=== PATIENT | male | born 2000 | race American Indian/Alaskan Native ===

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

== ENCOUNTER 2022-04-07 13:42 | Emergency (ER) | payer OTHER, SELFPAY | END 2022-04-07 14:38 | disposition left against medical advice (07) | PROVIDERS: Emergency Provider Emergency Medicine; PCP Family Medicine | DX: R11.2 Nausea with vomiting, unspecified (principal) ==

== ENCOUNTER 2023-05-15 18:02 | Emergency (ER) | payer OTHER, SELFPAY ==
[2023-05-15 18:11] VITALS: BP 159/96; PULSE 94; RESP 18; TEMP 37; O2SAT 99; BMI 18.8
--- NOTE | 2023-05-15 18:52 | ED.ABDPAIN ---
HPI - Abdominal Pain General Chief Complaint: Abdominal Pain Stated Complaint: abdominal pain, lack of appetite, weak Time Seen by Provider: 05/15/23 18:26 Source: patient Mode of arrival: Ambulatory History of Present Illness HPI narrative: 22-year-old male with no reported past medical history presents by private vehicle from home for several days of decreased appetite and abdominal pain earlier this evening. Patient states that he has been dealing with low mood and this has caused him to have a decreased appetite. Earlier today he decided to eat Prydeinig food which caused an upset stomach and nausea. He reports passive suicidal thoughts without plan. He states that he does not want to hurt himself but does not know what to do or where to go for resources. Related Data Previous Rx's Medication Instructions Recorded acetaminophen 300 mg-codeine 30 mg 1 tab PO Q6H PRN pain #10 tabs 03/19/18 tablet (Tylenol-Codeine #3) Allergies Allergy/AdvReac Type Severity Reaction Status Date / Time Penicillins [PENICILLINS] Allergy Severe Unverified 08/14/17 11:57 Review of Systems Review of Systems Narrative: Negative except as noted above Patient History Medical History Healthy adolescent Surgical History H/O hernia repair Family History Family/Other Lung cancer Family/Other Breast cancer Family/Other Cancer Social History Smoking Status: Current every day smoker Smoking Status: Current every day smoker tobacco type: cigarettes and vaping alcohol intake frequency: a few times a month Substance Use Type: marijuana Exam Initial Vital Signs Initial Vital Signs: Vital Signs Temperature 98.6 F 05/15/23 18:11 Pulse Rate 94 H 05/15/23 18:11 Respiratory Rate 18 05/15/23 18:11 Blood Pressure 159/96 H 05/15/23 18:11 Pulse Oximetry 99 05/15/23 18:11 Oxygen Delivery Method Room Air, [place] Nasal Cannula 05/15/23 18:11 Const: Awake, alert, no acute distress, nontoxic appearing Cardiac: regular rate, regular rhythm RESP: unlabored, clear bilaterally, no wheezing GI: Atraumatic, soft, nontender Skin: Warm, Dry, intact, no rashes Neuro: AO x3, CN II-XII grossly intact, moves all extremities Psych: tearful, depressed mood. Suicidal ideations (passive, no plan), not homicidal Course Course Course Narrative: Abdominal pain after eating Prydeinig food after several days of anorexia. Patient is also tearful stating that he has had passive suicidal thoughts without plan and is here for help because he does not know where else to go. He states he does not want to hurt himself but does not know where else to go and is requesting resources. Abdomen soft and nontender. Symptoms likely started due to eating spicy food after prolonged decreased appetite. Orders Ordered: ED Orders 05/15/23 19:07 Complete Blood Count AUTO DIFF Stat Comprehensive Metabolic Panel Stat Lipase Stat TSH [Thyroid Stimulating Hormone] Stat 05/15/23 20:08 Urine Drug Screen, Rapid Stat Urine Microscopic Stat 05/15/23 20:13 [place] [facility] [place] Super[place] Stat Discontinued Medications Acetaminophen (Acetaminophen 325 Mg Tablet) 975 mg PO NOW ONE Stop: 05/15/23 19:10 Last Admin: 05/15/23 19:12 Dose: 975 mg Documented By: SUSAN Al Hydrox/Mg Hydrox/Simethicone (Mag Hydrox/Alum/Simeth 30 Ml Udc) 30 ml PO NOW ONE Stop: 05/15/23 18:52 Last Admin: 05/15/23 19:01 Dose: 30 ml Documented By: SUSAN Lidocaine HCl (Lidocaine Viscous 2% 15 Ml Solution) 15 ml PO NOW ONE Stop: 05/15/23 18:52 Last Admin: 05/15/23 19:00 Dose: 15 ml Documented By: SUSAN Ondansetron HCl (Ondansetron 4 Mg Odt) 4 mg SL NOW ONE Stop: 05/15/23 19:10 Last Admin: 05/15/23 19:12 Dose: 4 mg Documented By: SUSAN Reevaluation(s) Reevaluation #1: Laboratory work is reviewed, no abnormalities identified, TSH within normal limits. Patient has been given a GI cocktail and is tolerating fluids, states he feels much better. Unfortunately we do not have social work today, however a consult has been placed for social work to contact the patient tomorrow when they are back in the department. Patient was advised that he should follow up with his primary care physician as he will likely need both counseling and antidepressants, however this is best started through her primary care physician to make sure he is adequate follow up. Patient states he feels better and is in agreement with plan. Crisis line info given to patient prior to discharge. Vital Signs Vital signs: Vital Signs - 8 hr 05/15/23 18:11 05/15/23 20:39 Temperature 98.6 F Pulse Rate 94 H 73 Respiratory Rate 18 18 Blood Pressure 159/96 H 139/66 Pulse Oximetry 99 99 Oxygen Delivery Method Room Air [place] Nasal Cannula Room Air MDM - Abdominal Pain Lab Data 05/15/23 19:07 05/15/23 19:07 Labs: Lab Results 05/15/23 05/15/23 Range/Units 19:07 20:08 WBC 6.8 (4.5-11.0) X10^3/uL RBC 4.94 (4.5-5.9) X10^6/uL Hgb 14.9 (13.5-17.5) g/dL Hct 43.4 (41-53) % MCV 87.9 (80-100) fL MCH 30.2 (26-34) PG MCHC 34.3 (30-36) % RDW 12.9 (11.6-14.8) % Plt Count 219 (150-400) X10^3/uL Neut % (Auto) 66.3 (50-75) % Lymph % (Auto) 25.1 (25-40) % [place] % (Auto) 7.6 (3-14) % Eos % (Auto) 0.7 L (2-4) % Baso % (Auto) 0.3 (0-2) % Neut # (Auto) 4500 (5549-9767) /uL Lymph # (Auto) 1700 (2652-9553) /uL [place] # (Auto) 500 (0-900) /uL Eos # (Auto) 0 (0-450) /uL Baso # (Auto) 0 (0-100) /uL Sodium 141 (137-145) mmol/L Potassium 3.9 (3.4-5.1) mmol/L Chloride 102 (98-107) mmol/L Carbon Dioxide 28 (22-32) mmol/L BUN 15 (9-20) mg/dL Creatinine 0.85 (0.66-1.25) mg/dL Estimated GFR > 60 (>60) mL/min BUN/Creatinine Ratio 17.6 (6-22) Glucose 93 (70-100) mg/dL Calcium 10.3 H (8.4-10.2) mg/dL Total Bilirubin 1.1 (0.2-1.3) mg/dL AST 29 (17-59) IU/L ALT 17 (<50) IU/L Alkaline Phosphatase 55 (38-126) U/L Total Protein 8.8 H (6.3-8.2) g/dL Albumin 5.1 H (3.5-5.0) g/dL Globulin 3.7 (1.7-4.1) g/dL Albumin/Globulin Ratio 1.4 (1.0-2.8) Lipase 62 (23-300) U/L TSH 0.570 (0.47-4.68) uIU/mL Urine RBC 0-1/hpf (0-5/HPF) Urine WBC 0-1/hpf (0-5/HPF) Ur Squamous Epith Cells 0-1 /hpf (0-5/HPF) Amorphous Sediment 4+ Urine Bacteria Occasional (0-1) (None) Ur Culture Indicated? Cult not indicated U Opiates 300ng/mL cut Negative (Negative) Ur Oxycodone Screen Negative (Negative) Urine Methadone Screen Negative (Negative) Ur Barbiturates Screen Negative (Negative) U Tricyclic Antidepress Negative (Negative) Ur Phencyclidine Scrn Negative (Negative) Ur Amphetamines Screen Negative (Negative) U Methamphetamines Scrn Negative (Negative) Ur MDMA Scrn (Ecstasy) Negative (Negative) U Benzodiazepines Scrn Negative (Negative) Urine Cocaine Screen Negative (Negative) U Marijuana (THC) Screen Positive H (Negative) Urine pH Normal (Normal) Urine Specific [place] Normal (Normal) Ur Creatinine Normal (Normal) Point of care testing: Urine Dip Bedside Urine Glucose Negative Bedside Urine Bilirubin - Negative Bedside Urine Ketone - Negative Urine Specific [place] 1.015 Bedside Urine Occult Blood - Negative Bedside Urine pH 8 Bedside Urine Protein +/- 15 Bedside Urine Urobilinogen - Negative Bedside Urine Nitrite - Negative Bedside Urine Leukocytes - Negative Esterase Discharge Plan Departure Patient Disposition: Home Clinical Impression: Depression, Abdominal pain Instructions: Depression, Acute Abdominal Pain Activity Restrictions/Additional Instructions: Your laboratory work today was normal including your thyroid panels. I highly recommend following up with your primary care physician, you may need to be started on antidepressants, however this should be started with your primary care physician and not through the emergency department. Our social media marketing analyst has been consulted and we will contact you tomorrow to help set up additional resources. Crisis line: Dial [phone] Prescriptions: No Action acetaminophen-codeine [Tylenol-Codeine #3] 300-30 mg tablet 1 tab PO Q6H PRN (Reason: pain) Qty: 10 0RF Referrals: Joaquina Nava MD [Primary Care Provider] - Stand Alone Forms: Patient Portal/API
[2023-05-15] MEDS: LIDOCAINE VISCOUS 2% 15 ML SOLUTION PO (19:00)
[2023-05-15] MEDS: MAG HYDROX/ALUM/SIMETH 30 ML UDC PO (19:01)
[2023-05-15] MEDS: ONDANSETRON 4 MG ODT SL (19:12)
[2023-05-15] MEDS: ACETAMINOPHEN 325 MG TABLET 975 MG PO (19:12)
[2023-05-15 19:15] LABS: Add Manual Diff / Slide Review NO; Basophils Absolute Auto 0 /uL (0-100); Basophils Percent Auto 0.3 % (0-2); Eosinophils Absolute Auto 0 /uL (0-450); Eosinophils Percent Auto 0.7 % (2-4); Hematocrit 43.4 % (41-53); Hemoglobin 14.9 g/dL (13.5-17.5); Lymphocytes Absolute Auto 1700 /uL (1100-4500); Lymphocytes Percent Auto 25.1 % (25-40); Mean Corpuscular HGB Conc 34.3 % (30-36); Mean Corpuscular Hemoglobin 30.2 PG (26-34); Mean Corpuscular Volume 87.9 fL (80-100); Monocytes Absolute Auto 500 /uL (0-900); Monocytes Percent Auto 7.6 % (3-14); Neutrophils Absolute Auto 4500 /uL (1500-7000); Neutrophils Percent Auto 66.3 % (50-75); Platelet Count 219 X10^3/uL (150-400); Red Blood Cell Count 4.94 X10^6/uL (4.5-5.9); Red Cell Distribution Width 12.9 % (11.6-14.8); White Blood Cell Count 6.8 X10^3/uL (4.5-11.0)
[2023-05-15 19:36] LABS: Alanine Aminotransferase 17 IU/L (<50); Albumin 5.1 g/dL (3.5-5.0); Albumin Globulin Ratio 1.4 (1.0-2.8); Alkaline Phosphatase 55 U/L (38-126); Aspartate Aminotransferase 29 IU/L (17-59); BUN Creatinine Ratio 17.6 (6-22); Bilirubin Total 1.1 mg/dL (0.2-1.3); Blood Urea Nitrogen 15 mg/dL (9-20); Calcium 10.3 mg/dL (8.4-10.2); Carbon Dioxide 28 mmol/L (22-32); Chloride 102 mmol/L (98-107); Estimated Glomerular Filt Rate > 60 mL/min (>60); Globulin 3.7 g/dL (1.7-4.1); Glucose 93 mg/dL (70-100); HEMOLYSIS < 15 (0-50); Lipase 62 U/L (23-300); Potassium 3.9 mmol/L (3.4-5.1); Sodium 141 mmol/L (137-145); Total Protein 8.8 g/dL (6.3-8.2)
[2023-05-15 20:23] LABS: UR Morphine/Opiate cutoff 300 Negative (Negative); Ur Creatinine Normal (Normal); Ur Specific Gravity Normal (Normal); Urine Amphetamines Negative (Negative); Urine Barbiturates Negative (Negative); Urine Benzodiazepines Negative (Negative); Urine Cocaine Negative (Negative); Urine MDMA Negative (Negative); Urine Methadone Negative (Negative); Urine Methamphetamines Negative (Negative); Urine Oxycodone Negative (Negative); Urine Phencyclidine Negative (Negative); Urine Tetrahydrocannabinol Positive (Negative); Urine Tricyclic Antidepressant Negative (Negative); Urine pH Normal (Normal)
[2023-05-15 20:32] LABS: Amorphous Sediment Urine 4+; Bacteria Urine Occasional (0-1); Culture Indicated Urine Cult Not Indicated; RBC Urine 0-1/HPF (0-5/HPF); Squamous Epithelial Cell Urine 0-1 /HPF (0-5/HPF); WBC Urine 0-1/HPF (0-5/HPF)
[2023-05-15 20:39] VITALS: BP 139/66; PULSE 73; RESP 18; O2SAT 99
--- NOTE | 2023-05-16 16:53 | CM.SWNOTE ---
ED CUT AND PRINT MACHINE OPERATOR Follow Up Note CUT AND PRINT MACHINE OPERATOR receives consult for f/u call after patient's presentation to ED due to concern for abd pain and reported Depression and passive SI. CUT AND PRINT MACHINE OPERATOR calls patient and patient reports he has been depressed for a long time and is interested in medication. Patient endorses his family has not been supportive of rx so he has not ever taken anything. Patient endorses he is ready for some help. CUT AND PRINT MACHINE OPERATOR offers to assist patient in setting up PCP appt. CUT AND PRINT MACHINE OPERATOR recommends discussing BH referrals with PCP at [facility]. CUT AND PRINT MACHINE OPERATOR calls patient's PCP office at [facility] and schedules PCP f/u for tomorrow 05/17/23 at 11:00 AM, the clinic requests records from patient's recent ED visit. CUT AND PRINT MACHINE OPERATOR calls patient back and informs him of PCP appt, patient indicates agreement and understanding. Patient gives consent for CUT AND PRINT MACHINE OPERATOR to fax ED records to PCP office. Plan: patient to f/u with PCP tomorrow for rx and BH referral. ADONAY VazquezSW
== END 2023-05-15 20:52 | disposition home or self-care (01) ==
PROVIDERS: Emergency Provider Emergency Medicine; PCP Family Medicine
DX: F32.A Depression, unspecified (principal); R10.9 Unspecified abdominal pain
CPT/HCPCS: 36415; 80053; 80305; 81003; 81015; 83690; 84443; 85025; 99283; 99284

== ENCOUNTER 2023-11-04 19:50 | Emergency (ER) | payer OTHER, SELFPAY ==
[2023-11-04 19:58] VITALS: BP 118/62; PULSE 101; RESP 22; TEMP 38.8; O2SAT 98; BMI 20.7
[2023-11-04] MEDS: ONDANSETRON 4 MG/2 ML INJ IV (20:30)
[2023-11-04] MEDS: SODIUM CHLORIDE 0.9% 1,000 ML 1000 ML IV (20:31)
[2023-11-04] MEDS: KETOROLAC 30 MG/ML VIAL 15 MG IV (20:31)
[2023-11-04 20:33] LABS: Add Manual Diff / Slide Review NO; Basophils Absolute Auto 0 /uL (0-100); Basophils Percent Auto 0.2 % (0-2); Eosinophils Absolute Auto 100 /uL (0-450); Eosinophils Percent Auto 0.4 % (2-4); Hematocrit 41.1 % (41-53); Hemoglobin 13.8 g/dL (13.5-17.5); Lymphocytes Absolute Auto 800 /uL (1100-4500); Mean Corpuscular HGB Conc 33.5 % (30-36); Mean Corpuscular Hemoglobin 30.6 PG (26-34); Mean Corpuscular Volume 91.4 fL (80-100); Monocytes Absolute Auto 900 /uL (0-900); Monocytes Percent Auto 6.2 % (3-14); Neutrophils Absolute Auto 13400 /uL (1500-7000); Neutrophils Percent Auto 88.2 % (50-75); Platelet Count 189 X10^3/uL (150-400); Red Blood Cell Count 4.49 X10^6/uL (4.5-5.9); White Blood Cell Count 15.2 X10^3/uL (4.5-11.0)
[2023-11-04 20:49] LABS: Lactate (Lactic Acid) 1.3 mmol/L (0.7-2.1)
[2023-11-04 20:50] LABS: Alanine Aminotransferase 15 IU/L (<50); Albumin 4.7 g/dL (3.5-5.0); Albumin Globulin Ratio 1.4 (1.0-2.8); Alkaline Phosphatase 71 U/L (38-126); Aspartate Aminotransferase 26 IU/L (17-59); BUN Creatinine Ratio 17.8 (6-22); Blood Urea Nitrogen 21 mg/dL (9-20); Calcium 9.2 mg/dL (8.4-10.2); Carbon Dioxide 27 mmol/L (22-32); Chloride 100 mmol/L (98-107); Estimated Glomerular Filt Rate > 60 mL/min (>60); Globulin 3.4 g/dL (1.7-4.1); Glucose 167 mg/dL (70-100); HEMOLYSIS < 15 (0-50); Lipase 41 U/L (23-300); Potassium 3.8 mmol/L (3.4-5.1); Sodium 134 mmol/L (137-145); Total Protein 8.1 g/dL (6.3-8.2)
[2023-11-04 21:07] LABS: Procalcitonin 0.229 ng/mL (<0.5)
[2023-11-04 21:32] LABS: Influenza A - CEPHEID Flu A NEGATIVE (NEGATIVE); Influenza B - CEPHEID Flu B NEGATIVE (NEGATIVE); Respiratory Syncytial Virus Negative (Negative)
[2023-11-04 21:49] LABS: COVID-19 CEPHEID 4-PLEX PCR Negative (Negative)
--- NOTE | 2023-11-04 22:19 | ED.NAVMDI ---
HPI - Nausea/Vomiting/Diarrhea General Chief complaint: Nausea/Vomiting/Diarrhea Stated complaint: abd px, vomiting unable to eat or drink Time Seen by Provider: 11/04/23 20:06 Mode of arrival: Ambulatory History of Present Illness HPI Narrative: Patient is a 23-year-old male without significant past medical history presenting today with nausea vomiting diarrhea ongoing for last 2-3 days. He reports he has been out cramping on about for the last couple of days nobody else is sick. He has not had any recent antibiotics no travel. He reports that the 1st day he had significant vomiting that has subsided. Now he has had a couple episodes of diarrhea today nonbloody. Minimal abdominal pain. He has had sweats and chills. Currently febrile temperature 101.8? tachycardic at 101. Related Data Previous Rx's Medication Instructions Recorded acetaminophen 300 mg-codeine 30 mg 1 tab PO Q6H PRN pain #10 tabs 03/19/18 tablet (Tylenol-Codeine #3) ondansetron 4 mg disintegrating 4 mg PO Q6-8H PRN nausea and 11/04/23 tablet vomiting #10 tabs Allergies Allergy/AdvReac Type Severity Reaction Status Date / Time Penicillins [PENICILLINS] Allergy Severe Unverified 08/14/17 11:57 Patient History Medical History Healthy adolescent Surgical History H/O hernia repair Family History Family/Other Lung cancer Family/Other Breast cancer Family/Other Cancer Social History Smoking Status: Current every day smoker Smoking Status: Current every day smoker tobacco type: cigarettes and vaping alcohol intake frequency: a few times a month Substance Use Type: marijuana Exam Initial Vital Signs Initial Vital Signs: Vital Signs Temperature 101.8 F H 11/04/23 19:58 Pulse Rate 101 H 11/04/23 19:58 Respiratory Rate 22 11/04/23 19:58 Blood Pressure 118/62 11/04/23 19:58 Pulse Oximetry 98 11/04/23 19:58 Oxygen Delivery Method Room Air 11/04/23 19:58 GENERAL: Alert well-appearing 23-year-old male and in no acute distress. HEENT: Head atraumatic,EOMI, pupils reactive, face symmetric, moist mucous membranes CARDIOVASCULAR: Regular rate and rhythm without murmurs, rubs or gallops. RESPIRATORY: Breath sounds equal bilaterally, no wheezes rales or rhonchi. ABDOMEN: Soft, nontender. Normoactive bowel sounds all 4 quadrants. No guarding or rebound. EXTREMITIES: Normal range of motion, no clubbing or edema. Neurovascularly intact NEUROLOGICAL: Alert and oriented x4.Normal gait and speech. SKIN: Warm, dry, no laceration, no petechiae, no rashes or lesions. Course Orders Ordered: ED Orders 11/04/23 21:14 Blood Culture Stat Discontinued Medications Sodium Chloride (Normal Saline 0.9%) 1,000 mls @ 1,000 mls/hr IV BOLUS ONE Stop: 11/04/23 21:21 Last Infusion: 11/04/23 21:13 Dose: Infused Documented By: Admin: 11/04/23 20:31 Dose: 1,000 mls/hr Documented By: Ketorolac Tromethamine (Ketorolac 30 Mg/Ml Vial) 15 mg IV NOW ONE Stop: 11/04/23 20:23 Last Admin: 11/04/23 20:31 Dose: 15 mg Documented By: Ondansetron HCl (Ondansetron 4 Mg/2 Ml Inj) 4 mg IV NOW ONE Stop: 11/04/23 20:24 Last Admin: 11/04/23 20:30 Dose: 4 mg Documented By: Ondansetron HCl (Ondansetron 4 Mg Odt Prepack) 1 bottle MISC NOW ONE Stop: 11/04/23 22:28 Last Admin: 11/04/23 22:40 Dose: 1 bottle Documented By: RL Vital Signs Vital signs: Vital Signs - 8 hr 11/04/23 22:32 Temperature 99.0 F Pulse Rate 63 Respiratory Rate 18 Blood Pressure 96/52 L Pulse Oximetry 97 Oxygen Delivery Method Room Air MDM - Nausea/Vomiting/Diarrhea Lab Data 11/04/23 20:17 11/04/23 20:17 Labs: Lab Results 11/04/23 11/04/23 Range/Units 20:17 20:28 WBC 15.2 H (4.5-11.0) X10^3/uL RBC 4.49 L (4.5-5.9) X10^6/uL Hgb 13.8 (13.5-17.5) g/dL Hct 41.1 (41-53) % MCV 91.4 (80-100) fL MCH 30.6 (26-34) PG MCHC 33.5 (30-36) % RDW 13.0 (11.6-14.8) % Plt Count 189 (150-400) X10^3/uL Neut % (Auto) 88.2 H (50-75) % Lymph % (Auto) 5.0 L (25-40) % [place] % (Auto) 6.2 (3-14) % Eos % (Auto) 0.4 L (2-4) % Baso % (Auto) 0.2 (0-2) % Neut # (Auto) 70220 H (6755-9059) /uL Lymph # (Auto) 800 L (4750-8000) /uL [place] # (Auto) 900 (0-900) /uL Eos # (Auto) 100 (0-450) /uL Baso # (Auto) 0 (0-100) /uL Sodium 134 L (137-145) mmol/L Potassium 3.8 (3.4-5.1) mmol/L Chloride 100 (98-107) mmol/L Carbon Dioxide 27 (22-32) mmol/L BUN 21 H (9-20) mg/dL Creatinine 1.18 (0.66-1.25) mg/dL Estimated GFR > 60 (>60) mL/min BUN/Creatinine Ratio 17.8 (6-22) Glucose 167 H (70-100) mg/dL Lactate 1.3 (0.7-2.1) mmol/L Calcium 9.2 (8.4-10.2) mg/dL Total Bilirubin 3.0 H (0.2-1.3) mg/dL AST 26 (17-59) IU/L ALT 15 (<50) IU/L Alkaline Phosphatase 71 (38-126) U/L Total Protein 8.1 (6.3-8.2) g/dL Albumin 4.7 (3.5-5.0) g/dL Globulin 3.4 (1.7-4.1) g/dL Albumin/Globulin Ratio 1.4 (1.0-2.8) Lipase 41 (23-300) U/L Procalcitonin 0.229 (<0.5) ng/mL SARS-CoV-2 (PCR) Negative (Negative) Influenza A (RT-PCR) Flu a negative (NEGATIVE) Influenza B (RT-PCR) Flu b negative (NEGATIVE) RSV (PCR) Negative (Negative) MDM Narrative Medical decision making narrative: Patient 23-year-old healthy male who presents today with nausea vomiting diarrhea ongoing for the last 3 days. He is currently febrile at 1:01 a.m.. He was only vomiting the 1st day but still feeling mildly nauseous. He is given IV fluids and Toradol. He is found have leukocytosis of 15, with lactate of 1.3 bilirubin 3.0 AST 26 ALT 15 alk phos 71 lipase 41 Patient is having symptoms of gastroenteritis with diarrhea nausea and vomiting. Abdomen is soft nontender no right upper quadrant pain. He is now tolerating oral fluids after Toradol and Zofran. I suspect gastroenteritis. Discussed with him oral rehydration technique. And when to return to the ED. Upon review his bilirubin has been as high as 2.6 before as well. Discharge Plan Departure Patient Disposition: Home Clinical Impression: Gastroenteritis Instructions: DI for Viral Gastroenteritis -- Adult Activity Restrictions/Additional Instructions: *You have been diagnosed with gastroenteritis *What to do: At this time increase fluid intake as tolerated recommend Pedialyte Gatorade or Gatorade like product. May increase diet as tolerated *Continue to take medications as directed Zofran 4 mg every 6-8 hours if needed for nausea or vomiting Tylenol 1000 mg every 6 hours for [id number] pain or fever Motrin 600 mg every 6 hours if needed for [id number] pain or fever *Follow up with your primary care provider in 2-3 days or call [phone] *Return to ER if you should have increasing pain persistent vomiting worsening diarrhea bloody diarrhea or any new, worsening or concerning symptoms Prescriptions: New ondansetron 4 mg tablet,disintegrating 4 mg PO Q6-8H PRN (Reason: nausea and vomiting) Qty: 10 0RF No Action acetaminophen-codeine [Tylenol-Codeine #3] 300-30 mg tablet 1 tab PO Q6H PRN (Reason: pain) Qty: 10 0RF Referrals: Joaquina Nava MD [Primary Care Provider] - Stand Alone Forms: Patient Portal/API
[2023-11-04 22:32] VITALS: BP 96/52; PULSE 63; RESP 18; TEMP 37.2; O2SAT 97
[2023-11-04] MEDS: ONDANSETRON 4 MG ODT PREPACK 1 BOTTLE MISC (22:40)
== END 2023-11-04 22:43 | disposition home or self-care (01) ==
PROVIDERS: Emergency Provider Emergency Medicine; PCP Family Medicine
DX: K52.9 Noninfective gastroenteritis and colitis, unspecified (principal); R00.0 Tachycardia, unspecified; R79.89 Other specified abnormal findings of blood chemistry; Z11.52 Encounter for screening for COVID-19
CPT/HCPCS: 0241U; 36415; 80053; 83605; 83690; 84145; 85025; 87040; 96361; 96374; 96375; 99283; 99284; J1885; J2405

== ENCOUNTER 2024-07-29 11:39 | Emergency (ER) | payer OTHER, SELFPAY ==
[2024-07-29 12:00] VITALS: BP 120/63; PULSE 70; RESP 15; TEMP 37; O2SAT 98; BMI 20.5
[2024-07-29 12:19] VITALS: RESP 15
--- NOTE | 2024-07-29 12:32 | ED_ITS ---
HPI - Abdominal Pain <Winsome Ferguson PA-C - Last Filed: 07/29/24 16:26> General Chief Complaint: Abdominal Pain Stated Complaint: Gallbladder issues Time Seen by Provider: 07/29/24 12:12 Source: patient Mode of arrival: Ambulatory History of Present Illness HPI narrative: Mr. Tovar is a pleasant 24-year-old male with no reported past medical history who presents to the emergency department for nausea, vomiting, diarrhea and red for quadrant abdominal pain that he woke up with this morning. Patient states last night he ate mac and cheese that has been sitting in his car for a while. This morning when he woke up he had an episode of postprandial nausea and vomiting, 1 episode of loose stool. Any time he tries to eat or drink he has additional nausea/vomiting. He went to a clinic and had a negative flu test but was advised to come to the emergency department for right upper quadrant tenderness and concern for gallbladder problems. This time patient states he has no pain at rest but he does have mild tenderness to palpation of the right upper quadrant was abdomen. He is feeling slightly nauseated but has not had episode of emesis in the last 2 hours. He denies fevers, chest pain, shortness of breath, cough, flu-like symptoms, sick contact. Related Data Previous Rx's Medication Instructions Recorded acetaminophen 300 mg-codeine 30 mg 1 tab PO Q6H PRN pain #10 tabs 03/19/ tablet (Tylenol-Codeine #3) ondansetron 4 mg disintegrating 4 mg PO Q6-8H PRN nausea and 11/04/23 tablet vomiting #10 tabs ondansetron 4 mg disintegrating 4 mg PO Q8H PRN nausea and 07/29/24 tablet vomiting #14 tabs Allergies Allergy/AdvReac Type Severity Reaction Status Date / Time Penicillins [PENICILLINS] Allergy Severe Rash Verified 07/29/24 13:09 Review of Systems <Winsome Ferguson PA-C - Last Filed: 07/29/24 16:26> Review of Systems ROS Unobtainable: All systems reviewed & are unremarkable except as noted in HPI and below Patient History <Winsome Ferguson PA-C - Last Filed: 07/29/24 16:26> Medical History Healthy adolescent Surgical History H/O hernia repair Family History Family/Other Lung cancer Family/Other Breast cancer Family/Other Cancer Social History Smoking Status: Current every day smoker Smoking Status: Current every day smoker tobacco type: vaping alcohol intake frequency: a few times a month Exam <Winsome Ferguson PA-C - Last Filed: 07/29/24 16:26> Narrative Exam Narrative: GENERAL: 24 year old patient appears stated age. Well-developed patient, in no acute distress. HEAD: Atraumatic. Normocephalic. EYES: No scleral icterus. No injection or drainage. NECK: Trachea midline. Cervical ROM intact. CARDIOVASCULAR: Regular rate and rhythm. RESPIRATORY: ?Nonlabored respirations. ?Speaking in clear, full sentences. ?Clear to auscultation. Breath sounds equal bilaterally. No wheezes, rales, or rhonchi. ? GASTROINTESTINAL: Abdomen soft, nondistended, normal bowel sounds. He has mild reproducible right upper quadrant tenderness but negative Elliott's sign. EXTREMITIES: No edema or joint tenderness. BACK: Nontender without deformity or crepitance. No flank tenderness. NEURO: AOx3. ?Clear speech. ?Moves all 4 extremities appropriately. SKIN: No rash or erythema of visible areas Initial Vital Signs Initial Vital Signs: Vital Signs Temperature 98.6 F 07/29/24 12:00 Pulse Rate 70 07/29/24 12:00 Respiratory Rate 15 07/29/24 12:00 Blood Pressure 120/63 07/29/24 12:00 Pulse Oximetry 98 07/29/24 12:00 Oxygen Delivery Method Room Air 07/29/24 12:00 <Briseyda Lyn MD - Last Filed: 08/01/24 04:09> Initial Vital Signs Initial Vital Signs: Vital Signs Temperature 98.6 F 07/29/24 12:00 Pulse Rate 70 07/29/24 12:00 Respiratory Rate 15 07/29/24 12:00 Blood Pressure 120/63 07/29/24 12:00 Pulse Oximetry 98 07/29/24 12:00 Oxygen Delivery Method Room Air 07/29/24 12:00 Course <Winsome Ferguson PA-C - Last Filed: 07/29/24 16:26> Orders Ordered: Discontinued Medications Ondansetron HCl (Ondansetron 4 Mg Odt) 4 mg SL NOW ONE Stop: 07/29/24 12:40 Last Admin: 07/29/24 13:06 Dose: 4 mg Documented By: PHYLLIS Vital Signs Vital signs: Vital Signs - 8 hr 07/29/24 12:00 07/29/24 12:19 07/29/24 13:11 Temperature 98.6 F Pulse Rate 70 Respiratory Rate 15 15 14 Blood Pressure 120/63 Pulse Oximetry 98 Oxygen Delivery Method Room Air 07/29/24 14:53 Temperature 98 F Pulse Rate 60 Respiratory Rate 16 Blood Pressure 141/73 H Pulse Oximetry 99 Oxygen Delivery Method Room Air <Briseyda Lyn MD - Last Filed: 08/01/24 04:09> Orders Ordered: Discontinued Medications Ondansetron HCl (Ondansetron 4 Mg Odt) 4 mg SL NOW ONE Stop: 07/29/24 12:40 Last Admin: 07/29/24 13:06 Dose: 4 mg Documented By: PHYLLIS Vital Signs Vital signs: Vital Signs - 8 hr 07/29/24 12:00 07/29/24 12:19 07/29/24 13:11 Temperature 98.6 F Pulse Rate 70 Respiratory Rate 15 15 14 Blood Pressure 120/63 Pulse Oximetry 98 Oxygen Delivery Method Room Air 07/29/24 14:53 Temperature 98 F Pulse Rate 60 Respiratory Rate 16 Blood Pressure 141/73 H Pulse Oximetry 99 Oxygen Delivery Method Room Air MDM - Abdominal Pain <Winsome Ferguson PA-C - Last Filed: 07/29/24 16:26> Medical Records Attestation: I reviewed the patient's medical records. Lab Data Point of care testing: Urine Dip Bedside Urine Glucose Negative Bedside Urine Bilirubin - Negative Bedside Urine Ketone - Negative Urine Specific [place] 1.010 Bedside Urine Occult Blood - Negative Bedside Urine pH 8.5 Bedside Urine Protein - Negative Bedside Urine Urobilinogen - Negative Bedside Urine Nitrite - Negative Bedside Urine Leukocytes - Negative Esterase Imaging Data RUQ US: Radiologist's Impression: PROCEDURE: US ABDOMEN LIMITED INDICATIONS: RUQ abd pain; N/V TECHNIQUE: Real-time scanning was performed of the abdominal and retroperitoneal organs, with image documentation. COMPARISON: [facility], US, US ABDOMEN LIMITED, 09/03/2021, 22:39. FINDINGS: Liver: Liver is normal in size and homogeneous in echotexture. Gallbladder: No gallstones. No wall thickening. No pericholecystic edema. Negative sonographic Elliott's sign. Biliary ducts: Intrahepatic bile ducts are non-dilated. Extrahepatic bile duct caliber measures 1.4 mm. Normal is 6-7 mm or less in diameter, or 10 mm or less post-cholecystectomy. Pancreas: Visualized portions of the pancreas are sonographically normal. Miscellaneous: No free abdominal fluid. IVC is dilated, likely due to volume status. Punctate cortical foci within the right renal cortex, nonspecific. IMPRESSION: No acute abnormality. Dilated IVC, likely due to volume status. MDM Narrative Medical decision making narrative: 24-year-old male with no reported past medical history who presents to the emergency department for nausea, vomiting, diarrhea and red for quadrant abdominal pain that he woke up with this morning. Differential diagnosis includes was not limited to gastroenteritis, viral syndrome, cholelithiasis, biliary colic, gastritis, etc. On exam patient is in no acute distress, nontoxic appearing, vital signs within normal limits. He is mild tenderness to palpation of the right upper quadrant but negative Elliott's sign. He believes his symptoms are likely related eating old mac and cheese. He had a negative flu swab prior to arrival. Recommended labs, fluids, Zofran, ultrasound however he declines IV at this time. We will proceed with the ultrasound and oral Zofran. Patient tolerating p.o. after Zofran, no nausea vomiting or diarrhea in the emergency department. Abdominal ultrasound reveals no acute abnormality. He does have a dilated IVC, likely due to volume status. Patient is not experiencing any shortness of breath, any lower extremity edema. Discussed findings of normal gallbladder with no gallstones, patient was very reassured and is requesting discharge. I did provide him with a copy of his imaging and we discussed incidental findings. Discussed strict ED return precautions with the patient. He was prescribed a course of Zofran for suspected gastroenteritis at this time however discussed the importance of follow up with PCP and return to ED for any new or worsening symptoms. Patient verbalized understanding of all information is agreeable to plan. He is stable for discharge home. <Briseyda Lny MD - Last Filed: 08/01/24 04:09> Lab Data Point of care testing: Urine Dip Bedside Urine Glucose Negative Bedside Urine Bilirubin - Negative Bedside Urine Ketone - Negative Urine Specific [place] 1.010 Bedside Urine Occult Blood - Negative Bedside Urine pH 8.5 Bedside Urine Protein - Negative Bedside Urine Urobilinogen - Negative Bedside Urine Nitrite - Negative Bedside Urine Leukocytes - Negative Esterase Discharge Plan Departure Patient Disposition: Home Clinical Impression: Gastroenteritis Instructions: DI for Viral Gastroenteritis -- Adult Activity Restrictions/Additional Instructions: Thank you for coming to the emergency department. Today you were evaluated for right upper quadrant abdominal pain, nausea, vomiting diarrhea. The ultrasound of your abdomen revealed no gallstones or problems with the gallbladder. Please rest, hydrate using water electrolyte drinks, and uses prescribed nausea medicine if needed. Please follow up with the primary care doctor but return to the emergency department if you develop severe pain, persistent vomiting and diarrhea or any other concerns. Please follow up with your primary care doctor within the next 2-3 days for ER follow-up. (If you do not have a PCP you can call [phone]. ?to schedule an appointment with an [facility] Primary Care Provider) IF YOU DEVELOP ANY NEW OR WORSENING SYMPTOMS, RETURN TO THE ER! Please read the attached instructions, they highlight more specific treatments and interventions for you at home. Thank you for letting me participate in your care, Winsome Ferguson PA-C Prescriptions: New ondansetron 4 mg tablet,disintegrating 4 mg PO Q8H PRN (Reason: nausea and vomiting) Qty: 14 0RF No Action acetaminophen-codeine [Tylenol-Codeine #3] 300-30 mg tablet 1 tab PO Q6H PRN (Reason: pain) Qty: 10 0RF ondansetron 4 mg tablet,disintegrating 4 mg PO Q6-8H PRN (Reason: nausea and vomiting) Qty: 10 0RF Referrals: Joaquina Nava MD [Primary Care Provider] - Stand Alone Forms: Patient Portal/API/Survey ED Sign-out <Briseyda Lyn MD - Last Filed: 08/01/24 04:09> Cosign ED Attending Inderjit Attestation: I was immediately available in the department for consultation throughout this patient's visit. Briseyda Lyn MD
--- NOTE | 2024-07-29 12:39 | DI.US.S_ITS ---
PROCEDURE: US ABDOMEN LIMITED INDICATIONS: RUQ abd pain; N/V TECHNIQUE: Real-time scanning was performed of the abdominal and retroperitoneal organs, with image documentation. COMPARISON: [facility], , US ABDOMEN LIMITED, 09/03/2021, 22:39. FINDINGS: Liver: Liver is normal in size and homogeneous in echotexture. Gallbladder: No gallstones. No wall thickening. No pericholecystic edema. Negative sonographic Elliott's sign. Biliary ducts: Intrahepatic bile ducts are non-dilated. Extrahepatic bile duct caliber measures 1.4 mm. Normal is 6-7 mm or less in diameter, or 10 mm or less post-cholecystectomy. Pancreas: Visualized portions of the pancreas are sonographically normal. Miscellaneous: No free abdominal fluid. IVC is dilated, likely due to volume status. Punctate cortical foci within the right renal cortex, nonspecific. IMPRESSION: No acute abnormality. Dilated IVC, likely due to volume status. Dictated by: Davy Garzon M.D. on 07/29/2024 at 13:25 Approved by: Davy Garzon M.D. on 07/29/2024 at 13:27
[2024-07-29] MEDS: ONDANSETRON 4 MG ODT SL (13:06)
[2024-07-29 13:11] VITALS: RESP 14
[2024-07-29 14:53] VITALS: BP 141/73; PULSE 60; RESP 16; TEMP 36.6; O2SAT 99
== END 2024-07-29 14:54 | disposition home or self-care (01) ==
PROVIDERS: Emergency Provider Physician Assistant; PCP Family Medicine
DX: K52.9 Noninfective gastroenteritis and colitis, unspecified (principal); R11.2 Nausea with vomiting, unspecified; R10.11 Right upper quadrant pain
CPT/HCPCS: 76705; 81003; 99283

== ENCOUNTER 2025-01-29 15:21 | Emergency (ER) | payer OTHER, SELFPAY ==
[2025-01-29 15:55] VITALS: BP 133/85; PULSE 78; RESP 16; TEMP 37; O2SAT 97
[2025-01-29] MEDS: KETOROLAC 30 MG/ML VIAL 15 MG IV (16:22)
[2025-01-29 16:23] LABS: Add Manual Diff / Slide Review NO; Hematocrit 42.8 % (41-53); Hemoglobin 14.8 g/dL (13.5-17.5); Lymphocytes Absolute Auto 1500 /uL (1100-4500); Mean Corpuscular HGB Conc 34.7 % (30-36); Mean Corpuscular Hemoglobin 30.7 PG (26-34); Mean Corpuscular Volume 88.5 fL (80-100); Platelet Count 203 X10^3/uL (150-400)
[2025-01-29] MEDS: diphenhydrAMINE 50 MG/ML VIAL 25 MG IV (16:25)
[2025-01-29 16:31] VITALS: BP 128/77; PULSE 80
[2025-01-29] MEDS: PROCHLORPERAZINE 10 MG/2 ML VIAL IV (16:31)
[2025-01-29 16:36] LABS: Alanine Aminotransferase 22 IU/L (<50); Albumin 5.3 g/dL (3.5-5.0); Albumin Globulin Ratio 1.6 (1.0-2.8); Alkaline Phosphatase 55 U/L (38-126); Blood Urea Nitrogen 15 mg/dL (9-20); Calcium 10.2 mg/dL (8.4-10.2); Carbon Dioxide 26 mmol/L (22-32); Chloride 102 mmol/L (98-107); Estimated Glomerular Filt Rate > 60 mL/min (>60); Globulin 3.3 g/dL (1.7-4.1); Glucose 98 mg/dL (70-99); HEMOLYSIS < 15 (0-50); Potassium 3.6 mmol/L (3.4-5.1); Sodium 140 mmol/L (137-145); Total Protein 8.6 g/dL (6.3-8.2)
[2025-01-29] MEDS: SODIUM CHLORIDE 0.9% 1,000 ML 1000 ML IV (16:36)
[2025-01-29 16:58] LABS: Influenza A - CEPHEID Flu A NEGATIVE (NEGATIVE); Influenza B - CEPHEID Flu B NEGATIVE (NEGATIVE)
[2025-01-29 17:18] LABS: COVID-19 CEPHEID 4-PLEX PCR Negative (Negative)
--- NOTE | 2025-01-29 18:44 | ED_ITS ---
HPI - General Adult General Chief complaint: Upper Respiratory Symptoms Stated complaint: Potential meningitis Time Seen by Provider: 01/29/25 15:50 History of Present Illness HPI narrative: 24-year-old young man who has had 2 severe headaches in the last 2 weeks comes in today with concerns for meningitis after being seen by practitioner of the travel clinic. Apparently he has been fatigued describes having a stiff neck however has no nuchal rigidity, 5:00 p.m. yesterday the fatigue started he began feeling ?like he was developing a virus? by 7:00 p.m. he had a severe left-sided head pain with photophobia and phonophobia. He ended up taking oxycodone at 1:00 a.m. which did seem to help. Was tested for COVID at the clinic and instructed to come to the ER for further evaluation. In further questioning his grandmother has migraines but there is not a very strong family history. He notes that over the past couple of weeks he has been working 18 hour days and has been quite fatigued from this. No vomiting but he is somewhat nauseated Related Data Previous Rx's ?Medication ?Instructions ?Recorded acetaminophen 300 mg-codeine 30 mg 1 tab PO Q6H PRN pa in #10 tabs 03/19/18 tablet (Tylenol-Codeine #3) ondansetron 4 mg disintegrating 4 mg PO Q6-8H PRN naus ea and 11/04/23 tablet vomiting #10 tabs ondansetron 4 mg disintegrating 4 mg PO Q8H PRN nausea and 07/29/24 tablet vomiting #14 tabs Allergies Allergy/AdvReac Type Severity Reaction Status Date / Time Penicillins (PENICILLINS) Allergy Severe Rash Verified 07/29/24 13:09 Review of Systems Review of Systems Narrative: Pertinent positive and negative findings as per HPI Patient History Medical History Healthy adolescent Surgical History H/O hernia repair Family History Family/Other Lung cancer Family/Other Breast cancer Family/Other Cancer tobacco type: vaping alcohol intake frequency: a few times a month Exam Initial Vital Signs Initial Vital Signs: Vital Signs Temperature 98.6 F 01/29/25 15:55 Pulse Rate 78 01/29/25 15:55 Respiratory Rate 16 01/29/25 15:55 Blood Pressure 133/85 01/29/25 15:55 Pulse Oximetry 97 01/29/25 15:55 Oxygen Delivery Method Room Air 01/29/25 15:55 General: Wearing dark sunglasses, significantly photophobic alert, appropriate able to cooperate fully with exam HEENT: Moist mucous membranes, normal sclera with reactive pupils, Neck: No nuchal rigidity, neck pain is not exacerbated with any type of neck flexion Respiratory: Lungs are clear to auscultation, no wheezing no rales no rhonchi. Full and symmetrical air movement Cardiac: Regular rate and rhythm no murmurs no bruits Skin: Warm and dry, no rashes Neurologic: Grossly neurologically intact with no obvious asymmetries or abnormalities Extremities: No trauma, well perfused Psych: Cooperative, appropriate insight and affect Course Orders Ordered: ED Orders 01/29/25 16:14 Complete Blood Count AUTO DIFF Stat Comprehensive Metabolic Panel Stat Covid-19 + FLU A/B + RSV - PCR Stat Discontinued Medications Dexamethasone (Dexamethasone 10 Mg/Ml Vial) 10 mg IV NOW ONE Stop: 01/29/25 16:03 Last Admin: 01/29/25 16:28 Dose: 10 mg Documented By: INA Diphenhydramine HCl (Diphenhydramine 50 Mg/Ml Vial) 25 mg IV NOW ONE Stop: 01/29/25 16:03 Last Admin: 01/29/25 16:25 Dose: 25 mg Documented By: INA Sodium Chloride (Normal Saline 0.9%) 1,000 mls @ 1,000 mls/hr IV BOLUS ONE Stop: 01/29/25 17:01 Last Infusion: 01/29/25 17:59 Dose: Infused Documented By: Admin: 01/29/25 16:36 Dose: 1,000 mls/hr Documented By: INA Ketorolac Tromethamine (Ketorolac 30 Mg/Ml Vial) 15 mg IV NOW ONE Stop: 01/29/25 16:03 Last Admin: 01/29/25 16:22 Dose: 15 mg Documented By: INA Prochlorperazine (Prochlorperazine 10 Mg/2 Ml Vial) 10 mg IV NOW ONE Stop: 01/29/25 16:03 Last Admin: 01/29/25 16:31 Dose: 10 mg Documented By: INA Vital Signs Vital signs: Vital Signs - 8 hr 01/29/25 15:55 01/29/25 16:31 Temperature 98.6 F Pulse Rate 78 80 Respiratory Rate 16 Blood Pressure 133/85 128/77 Pulse Oximetry 97 Oxygen Delivery Method Room Air Medical Decision Making Lab Data 01/29/25 16:14 01/29/25 16:14 Labs: Lab Results 01/29/25 Range/Units 16:14 WBC 6.4 (4.5-11.0) X10^3/uL RBC 4.84 (4.5-5.9) X10^6/uL Hgb 14.8 (13.5-17.5) g/dL Hct 42.8 (41-53) % MCV 88.5 (80-100) fL MCH 30.7 (26-34) PG MCHC 34.7 (30-36) % RDW 12.6 (11.6-14.8) % Plt Count 203 (150-400) X10^3/uL Neut % (Auto) 69.8 (50-75) % Lymph % (Auto) 23.0 L (25-40) % Gordon % (Auto) 6.1 (3-14) % Eos % (Auto) 0.7 L (2-4) % Baso % (Auto) 0.4 (0-2) % Neut # (Auto) 4500 (2341-9148) /uL Lymph # (Auto) 1500 (5003-3819) /uL Gordon # (Auto) 400 (0-900) /uL Eos # (Auto) 0 (0-450) /uL Baso # (Auto) 0 (0-100) /uL Sodium 140 (137-145) mmol/L Potassium 3.6 (3.4-5.1) mmol/L Chloride 102 (98-107) mmol/L Carbon Dioxide 26 (22-32) mmol/L BUN 15 (9-20) mg/dL Creatinine 0.93 (0.66-1.25) mg/dL Estimated GFR > 60 (>60) mL/min BUN/Creatinine Ratio 16.1 (6-22) Glucose 98 (70-99) mg/dL Calcium 10.2 (8.4-10.2) mg/dL Total Bilirubin 1.5 H (0.2-1.3) mg/dL AST 38 (17-59) IU/L ALT 22 (<50) IU/L Alkaline Phosphatase 55 (38-126) U/L Total Protein 8.6 H (6.3-8.2) g/dL Albumin 5.3 H (3.5-5.0) g/dL Globulin 3.3 (1.7-4.1) g/dL Albumin/Globulin Ratio 1.6 (1.0-2.8) SARS-CoV-2 (PCR) Negative (Negative) Influenza A (RT-PCR) Flu a negative (NEGATIVE) Influenza B (RT-PCR) Flu b negative (NEGATIVE) RSV (PCR) Negative (Negative) MDM Narrative Medical decision making narrative: 24-year-old gentleman with 18 our work schedule over the last couple of weeks. Last week had a severe left-sided headache with photophobia that lasted approximately 5 hours. Last night begin feeling as if he was getting sick within 2 hours had a severe headache comes in today with continued complaints significant photophobia, no fever. CBC is unremarkable Chemistries are reassuring No flu, COVID or RSV Imaging was not indicated today Treatment included IV medications for migraine: 1 L of fluid, Toradol, Compazine, Benadryl, dexamethasone On re-evaluation patient is pain-free feeling much better, no neck pain, no nausea We did discuss migraine diagnosis somewhat unusual the 1st onset at 24 however it does fit all diagnostic criteria. I am not suspicious for meningitis, brain mass or other significant pathology that would require further workup or hospitalization Discussed migraine triggers, management and suggested he follow up with his primary care physician he is safe for discharge Discharge Plan Departure Patient Disposition: Home Clinical Impression: Migraine Qualifiers: Migraine type: unspecified Status migrainosus presence: without status migrainosus Intractability: not intractable Qualified Code(s): G43.909 - Migraine, unspecified, not intractable, without status migrainosus Instructions: DI for Migraine Activity Restrictions/Additional Instructions: Thank you for coming into Based on your clinical exam and the fact that treatment for migraine headache has resolved all of your pain, my suspicion for meningitis today is quite low. We did test you for influenza, respiratory syncytial virus and again for COVID all of these were negative Your blood work does not suggest significant bacterial infection, anemia, kidney problems or liver problems Your description of your headache particularly with the severe photophobia and all localized on the left side is very suspicious for migraine headache. I would strongly recommend that you do a bit of research on migraine including triggers and prevention. I would also recommend that you schedule an appointment with your primary care doctor to talk about medications to use should you continue to have migraine In the meantime, Excedrin actually can be very helpful with the onset of a headache I would recommend having some available on hand. Using 400 mg of ibuprofen (2 taqk-cyr-kkiscyl pills) and 1 Tylenol every 6 hours can be very helpful in controlling pain. If you are having more than 5 headaches a month your primary care physician needs to be aware so that were using other treatments to prevent headaches. Prescriptions: No Action acetaminophen-codeine [Tylenol-Codeine #3] 300-30 mg tablet 1 tab PO Q6H PRN (Reason: pain) Qty: 10 0RF ondansetron 4 mg tablet,disintegrating 4 mg PO Q6-8H PRN (Reason: nausea and vomiting) Qty: 10 0RF ondansetron 4 mg tablet,disintegrating 4 mg PO Q8H PRN (Reason: nausea and vomiting) Qty: 14 0RF Referrals: Joaquina Nava MD [Primary Care Provider, Family Practice] Stand Alone Forms: Patient Portal/API
[2025-01-29 19:03] VITALS: BP 131/60; PULSE 63; O2SAT 100
== END 2025-01-29 19:03 | disposition home or self-care (01) ==
PROVIDERS: Emergency Provider Emergency Medicine; PCP Family Medicine
DX: G43.909 Migraine, unspecified, not intractable, without status migrainosus (principal)
CPT/HCPCS: 36415; 80053; 85025; 87637; 96361; 96374; 96375; 99284; J0780; J1100; J1200; J1885